=== PATIENT | female | born 1990 | race Hispanic/Latino ===

== ENCOUNTER 2017-03-18 22:05 | Inpatient (IN) ==
[2017-03-18 22:45] LABS: URINE SOURCE VOIDED
[2017-03-18 22:45] LABS: MANUAL DIFF NEEDED? NO
[2017-03-18 22:57] LABS: BASO% 0.7 % (0.0-0.8); EOS# 0.29 X1000 (0.0-0.7); EOS% 3.9 % (0.0-10.0); HEMATOCRIT 32.3 % (37.0-47.0); HEMOGLOBIN 10.5 g/dL (12.0-16.0); IMM GRAN# 0.07 X1000 (0.0-0.04); IMM GRAN% 0.9 % (0.0-0.5); LYMPH# 2.21 X1000 (1.2-3.4); LYMPH% 29.7 % (20.5-51.1); MCH 28.3 PG (27-31); MCHC 32.5 g/dL (33-37); MCV 87.1 FL (81-99); MONO# 0.55 X1000 (0.11-0.59); MONO% 7.4 % (1.7-9.3); MPV 12.4 FL (7.4-10.4); NEUT% 57.4 % (42.2-75.2); PLT 184 X1000 (130-400); RBC 3.71 XMIL (4.2-5.4)
[2017-03-18 23:07] LABS: BILIRUBIN URINE NEGATIVE (NEGATIVE); BLOOD URINE 3+ (NEGATIVE); CLARITY CLEAR (CLEAR); COLOR YELLOW; GLUCOSE URINE NEGATIVE (NEGATIVE); LEUKOCYTES URINE TRACE (NEGATIVE); NITRITE URINE NEGATIVE (NEGATIVE); PH URINE 6.5; PROTEIN URINE NEGATIVE (NEGATIVE); UROBILINOGEN URINE NORMAL
[2017-03-18 23:20] LABS: RAPID HIV PRESUMPTIVE NEGATIVE; RPR NON-REACTIVE (NONREACTIVE)
[2017-03-18 23:22] LABS: UR AMPHETAMINES QUAL NONE DETECTED (NONE DETECT); UR BARBITUATES QUAL NONE DETECTED (NONE DETECT); UR BENZODIAZEPIN QUAL NONE DETECTED (NONE DETECT); UR CANNABINOIDS QUAL NONE DETECTED (NONE DETECT); UR COCAINE QUAL NONE DETECTED (NONE DETECT); UR MDMA QUAL NONE DETECTED (NONE DETECT); UR METHADONE QUAL NONE DETECTED (NONE DETECT); UR METHAMPHETAMINE QUAL NONE DETECTED (NONE DETECT); UR OPIATES QUAL NONE DETECTED (NONE DETECT); UR OXYCODONE QUAL NONE DETECTED (NONE DETECT); UR PCP QUAL NONE DETECTED (NONE DETECT); UR TCA QUAL NONE DETECTED (NONE DETECT)
[2017-03-18] MEDS ORDERED: REGLAN PO ONE (23:39)
[2017-03-18] MEDS ORDERED: KEFZOL 1 GM/D5W 1 GM/50 ML IVPB IV PRN (23:39)
[2017-03-18] MEDS ORDERED: PEPCID PO ONE ×2 (23:39→23:45)
[2017-03-18] MEDS ORDERED: BICITRA PO ONE (23:50)
[2017-03-18] MEDS ORDERED: SODIUM CHLORIDE 0.9% INJ ONE (23:50)
[2017-03-18] MEDS ORDERED: PEPCID IV ONE (23:50)
[2017-03-19] MEDS: LR 1,000 ML IV SCH ×2 (00:11→02:00)
[2017-03-19] MEDS ORDERED: BENADRYL IV PRN (00:38)
[2017-03-19] MEDS ORDERED: ZOFRAN ODT PO PRN (00:38)
[2017-03-19] MEDS ORDERED: NARCAN INJ PRN (00:38)
[2017-03-19] MEDS ORDERED: ZOFRAN IV PRN ×2 (00:38)
[2017-03-19] MEDS ORDERED: DURAMORPH ONE (01:01)
[2017-03-19] MEDS ORDERED: PITOCIN ONE ×4 (01:01→01:43)
[2017-03-19] MEDS ORDERED: ZOFRAN ONE (01:02)
[2017-03-19] MEDS ORDERED: NEO-SYNEPHRINE ONE (01:04)
[2017-03-19] MEDS ORDERED: DECADRON ONE (01:05)
--- NOTE | 2017-03-19 02:32 | HISTORY AND PHYSICAL ---
CHIEF COMPLAINT: Post term , no care. Spontaneous rupture of membranes. HISTORY OF PRESENT ILLNESS: Ms. Lino is a 26-year-old 3 para 2 at 41+ weeks by poor dating criteria who presents complaining of rupture of membranes. Rupture membranes are positive. She has a history of a previous delivery and, again, has had no care during this . PAST MEDICAL HISTORY: No past medical history. PAST SURGICAL HISTORY: No other surgical history. ALLERGIES: No known drug allergies. MEDICATIONS: No medications. SOCIAL HISTORY: She denies tobacco, alcohol, or drug use. FAMILY HISTORY: Noncontributory. PHYSICAL EXAMINATION: VITALS: Her vital signs are stable. She is afebrile. GENERAL: She did not appear to be in any distress. NECK: Supple. LUNGS: Clear. HEART: Regular sinus rhythm. ABDOMEN: Gravid. Cervix is 3, grossly ruptured. EXTREMITIES: No cyanosis, clubbing, edema in her extremities. LABORATORY VALUES: Hemoglobin 10, hematocrit 32. Glucose 106. Urine is negative. ROM plus is positive. Drug screen is negative. RPR nonreactive. Rubella is pending. HIV presumptive negative. ASSESSMENT: As above. PLAN: Repeat delivery. cc: Toño Dougherty MD
[2017-03-19] MEDS ORDERED: DEMEROL IM PRN (02:47)
[2017-03-19] MEDS ORDERED: PITOCIN 20 UNITS/LR 20 UNITS/1,000 ML IV.SOLN IV ONE (02:47)
[2017-03-19] MEDS ORDERED: PHENERGAN IM PRN (02:47)
[2017-03-19] MEDS ORDERED: HYDROXYZINE IM PRN (02:47)
[2017-03-19] MEDS ORDERED: PITOCIN 10 UNITS/LR 10 UNIT/1,000 ML IV.SOLN IV SCH (02:47)
[2017-03-19] MEDS ORDERED: BOOSTRIX VACCINE IM ONE (02:47)
[2017-03-19] MEDS ORDERED: DEMEROL PO PRN ×2 (02:47)
[2017-03-19] MEDS ORDERED: MYLICON PO PRN (02:47)
[2017-03-19] MEDS ORDERED: DULCOLAX PR PRN (02:47)
[2017-03-19] MEDS ORDERED: PITOCIN IM PRN (02:47)
[2017-03-19] MEDS ORDERED: PERCOCET-5 PO PRN (02:47)
[2017-03-19] MEDS ORDERED: M-M-R II VACCINE SUBQ ONE (02:47)
[2017-03-19] MEDS ORDERED: HYDROXYZINE PO PRN (02:47)
[2017-03-19] MEDS ORDERED: AMBIEN PO PRN (02:47)
[2017-03-19] MEDS: TORADOL IV SCH ×4 (03:31→21:33)
--- NOTE | 2017-03-19 06:54 | OPERATIVE NOTE ---
PROCEDURE DATE: 03/19/2017 PREOPERATIVE DIAGNOSES: 1. Postdates . No care. 2. Spontaneous rupture of membranes. 3. Previous . POSTOPERATIVE DIAGNOSES: 1. Postdates . No care. 2. Spontaneous rupture of membranes. 3. Previous . PROCEDURE: Repeat section. PHYSICIAN: Toño Dougherty MD ANESTHESIA: Spinal done by FINDINGS: Viable male infant, 8 pounds 9 ounces, 9 and 10 's. ESTIMATED BLOOD LOSS: 600 mL. COMPLICATIONS: No complications. DRAIN: Abreu catheter. DESCRIPTION OF PROCEDURE: The patient presented with the above diagnoses through the language line. She was consented. All questions were answered. She was brought to the operating room where spinal anesthesia was administered. She was placed supine on the table. A Abreu catheter was inserted. She was prepped and draped in sterile fashion. Adequate anesthesia verified to the T10 level. A Pfannenstiel skin incision made across the old scar through the subcuticular tissue to the fascia. The midline was extended laterally with the scissors. The rectus muscle was dissected from underneath the rectus fascia both cephalad and caudad. Once this was done, the muscle was pulled to the side. Peritoneum was entered bluntly and a bladder blade was placed. Hysterotomy made in the lower uterine segment in the midline. Once membranes were encountered, it was then extended by pulling cephalad and caudad with good results. The was delivered occiput anterior. Once the infant was completely delivered, cord was doubly clamped and cut, care of was taken over by nursery personnel. Cord blood was obtained. Then, uterus was massaged to deliver the placenta, which was delivered intact. Uterus was then exteriorized, and wiped free of clots and remaining placental tissue and hysterotomy incision was closed with 0 chromic running and locking. Once this was done, inspection of the fundus, tubes and ovaries did not reveal an abnormality so the uterus placed back into the abdomen. Some oozing from the right corner. Surgicel was placed. The bladder was allowed to fall into place. The peritoneum was reapproximated with 0 chromic. Muscle plicated in midline with same chromic. Fascia was closed with 0 Vicryl interrupted in a running nonlocking stitch. Subcutaneous tissue was irrigated and made hemostatic by electrocautery. No need to stitch together. Skin was closed with a subcuticular stitch. She was cleaned up then and taken off the operating table and brought to her room in stable condition. cc: Toño Dougherty MD
[2017-03-19] MEDS: MYLICON PO SCH ×4 (09:09→21:33)
[2017-03-19 11:14] LABS: RUBELLA SCREEN IMMUNE (IMMUNE)
[2017-03-19] MEDS: PERCOCET-10 PO PRN (16:44)
[2017-03-19] MEDS: PERICOLACE PO SCH (21:33)
[2017-03-20] MEDS ORDERED: LR 1,000 ML IV SCH (02:03)
[2017-03-20] MEDS: MOTRIN PO PRN ×2 (04:42→12:31)
[2017-03-20] MEDS: PERCOCET-10 PO PRN ×5 (04:43→19:44)
[2017-03-20 05:54] LABS: MANUAL DIFF NEEDED? NO
[2017-03-20 06:06] LABS: BASO% 0.3 % (0.0-0.8); EOS# 0.17 X1000 (0.0-0.7); EOS% 1.4 % (0.0-10.0); HEMATOCRIT 28.4 % (37.0-47.0); HEMOGLOBIN 8.9 g/dL (12.0-16.0); IMM GRAN# 0.06 X1000 (0.0-0.04); IMM GRAN% 0.5 % (0.0-0.5); LYMPH# 2.66 X1000 (1.2-3.4); LYMPH% 22.5 % (20.5-51.1); MCH 27.6 PG (27-31); MCHC 31.3 g/dL (33-37); MCV 88.2 FL (81-99); MONO# 0.92 X1000 (0.11-0.59); MONO% 7.8 % (1.7-9.3); MPV 12.3 FL (7.4-10.4); NEUT% 67.5 % (42.2-75.2); PLT 171 X1000 (130-400); RBC 3.22 XMIL (4.2-5.4)
[2017-03-20] MEDS: MYLICON PO SCH ×4 (09:37→19:44)
[2017-03-20 12:01] LABS: HEPATITIS B SURFACE ANTIGEN SEE COMMENTS
[2017-03-20 12:01] LABS: HIV ANTIBODY SCREEN SEE COMMENTS
[2017-03-20] MEDS: PERICOLACE PO SCH (19:44)
[2017-03-21] MEDS: MYLICON PO SCH ×2 (02:00→09:50)
[2017-03-21] MEDS: PERICOLACE PO SCH (02:00)
[2017-03-21] MEDS: MOTRIN PO PRN (03:52)
[2017-03-21] MEDS: PERCOCET-10 PO PRN (03:52)
[2017-03-21 08:50] VITALS: BP 126/80
--- NOTE | 2017-03-21 14:23 | DISCHARGE SUMMARY ---
ADMISSION DATE: 03/18/2017 DISCHARGE DATE: 03/21/2017 ADMITTING DIAGNOSES: 1. Post term . 2. No care. 3. Spontaneous rupture of membranes. 4. Previous , requesting a repeat . PRINCIPLE DIAGNOSES: 1. Post term . 2. No care. 3. Spontaneous rupture of membranes. 4. Previous , requesting a repeat . PROCEDURE: Repeat . SUMMARY: Ce Santana is a 26-year-old 3, para 2, at 41 weeks gestation by poor dating criteria. She presented on the late evening of 03/19 with spontaneous rupture of membranes. She did no care during this . She has had a previous section. She was therefore admitted and Dr. Dougherty performed a repeat low transverse in the early childhood teacher assistant hours of 03/19. She delivered a male weighing 8 pounds and 9 ounces with Apgars of 9 at 1 minute and 10 at 5 minutes. There were no intraoperative complications. Postoperatively, the patient did well. She remained afebrile and all vital signs were stable. She had an admission hemoglobin and hematocrit of 10.5/32.3 with a discharge hemoglobin and hematocrit being 8.9/28.4. Her blood type was O positive. On the day of discharge, cardiac and pulmonary examinations normal. Bowel and bladder function was normal. Incisions were clean and dry and she was having scant vaginal bleeding. Ms. Holland Santana is being discharged today. We will see her back in the office in a week. She was given prescriptions for Percocet and Motrin for postoperative pain. I will start her on iron and vitamins. cc: MD Toño Bojorquez MD
== END 2017-03-21 11:45 | disposition home or self-care (01) ==
LOC: P.OPLD 22:05 → P.LD 22:07
PROVIDERS: ADMIT Obstetrics & Gynecology; ATTEND Obstetrics & Gynecology